=== PATIENT | female | born 1965 | race Caucasian/White ===

== ENCOUNTER 2016-03-29 13:27 | Day surgery (SDC) | payer MEDICAID ==
[~2016-03-29] VITALS: Ht 170.2 cm; Wt 68.0 kg
[~2016-03-29 13:27] MED LIST: FLEXERIL10 MG PO; GABAPENTIN300 MG PO; HYDROCODONE BIT1 T39 PO; MULTI VITAMINS1 TA1 PO; OMEPRAZOLE D/R20 MG PO; OXYCODONE HCL10 M1 PO; OXYCONTIN 10MG10 MG PO; SENOKOT S NG
[2016-03-29 14:01] VITALS: BP 160/97
[2016-03-29 14:21] VITALS: BP 160/97
[2016-03-29 14:24] VITALS: BP 145/102
[2016-03-29 14:38] VITALS: BP 156/99
--- NOTE | 2016-03-29 14:40 | Procedure Note ---
Procedure detail Date of procedure: 03/29/16 Anesthesiologist: Tc fernando NON MOR[employer] INTERCEPT TECHNICIAN Complications: None Pre-procedure diagnosis: Degenerative disc disease cervical spine with cervical radiculopathy symptoms. Post-procedure diagnosis: Same. Indications for procedure: This patient's very pleasant 50-year-old white female that we treating her pain clinic for chronic cervical neck pain secondary to degenerative disc disease cervical spine multiple levels with cervical radiculopathy symptoms. Also, chronic low back pain secondary to degenerative disc disease lumbar spine multilevels as well as post laminectomy syndrome lumbar spine. Patient's main complaint of cervical neck pain that she describes as constant, dull, aching. She rates her pain 8/10. Patient has had 2 cervical epidural steroid injections in the past with 1-2 months of significant improvement terms of her cervical neck pain and cervical radiculopathy symptoms in either arm. Patient requesting a third cervical epidural steroid injection today. I think this is a reasonable injected therapy given the fact the patient had such relief with this injection in the past. Patient does complain of lumbar back pain however, patient states her cervical neck pain is greater. We are medically manage the patient with hydrocodone 7.5 mg 1 by mouth 3 times a day. Patient reports the pain medicine decreases her pain by 50 percent. Patient presents today for cervical epidural steroid injection. Procedure detail: Procedure:Cervical epidural steroid injection Informed consent was obtained and the risks and benefits of the procedure were explained to the patient. The patient was taken to the procedure room and noninvasive monitors placed, including noninvasive blood pressure cuff and pulse oximeter. The neck was prepped using Betadine as a cleansing solution. The C6-C7 interspace was palpated. The skin and subcutaneous tissues were anesthetized using lidocaine 1.5% and a 25-gauge needle. After this an 18-gauge Touhy epidural needle was placed into the C6-C7 interspace and advanced using loss of resistance to air until the epidural space was encountered. After confirmation of needle placement in the epidural space, a solution containing lidocaine 1.5%, 4 mL and Depo-Medrol 80 mg was incrementally injected into the cervical epidural space.~ The patient tolerated the procedure well with no complications. The patient was observed in the Pain Clinic and then discharged home neurologically intact. Plan and disposition: Patient was evaluated 10 minutes post procedure. Patient appears to be doing very well. We'll follow-up with her in the pain clinic for further evaluation. at [id number]
== END 2016-03-29 14:38 | disposition home or self-care (01) ==
LOC: PM 13:27
PROC: 3E0R33Z Introduction of Anti-inflammatory into Spinal Canal, Percutaneous Approach (ICD-10-PCS; principal; 2016-03-29)
PROC: 3E0R3BZ Introduction of Anesthetic Agent into Spinal Canal, Percutaneous Approach (ICD-10-PCS; 2016-03-29)
DX: M50.10 Cervical disc disorder with radiculopathy, unspecified cervical region (principal); M96.1 Postlaminectomy syndrome, not elsewhere classified
CPT/HCPCS: J1040; Q9966

== ENCOUNTER → 2016-06-16 | Outpatient (CLI) | payer MEDICAID ==
[2016-06-23 18:36] LABS: Codeine Negative (Cutoff=100); Hydrocodone Positive (.); Hydromorphone Positive (.); Morphine Negative (Cutoff=100); Opiates Positive (.)
== END ==
LOC: LAB 12:00
PROVIDERS: Anesthesiology
DX: Z79.899 Other long term (current) drug therapy (principal)

== ENCOUNTER → 2016-11-08 | Day surgery (SDC) | payer MEDICAID ==
[~2016-11-08] VITALS: Ht 170.2 cm; Wt 68.0 kg
[2016-11-08 15:36] VITALS: BP 133/85
[2016-11-08 16:02] VITALS: BP 133/85
[2016-11-08 16:08] VITALS: BP 129/90
--- NOTE | 2016-11-08 16:17 | Procedure Note ---
Procedure detail Date of procedure: 11/08/16 Anesthesiologist: Tc Benjamin Complications: None Pre-procedure diagnosis: Degenerative disc disease cervical spine multiple level cervical radiculopathy symptoms. Post-procedure diagnosis: Same Indications for procedure: Very pleasant 51-year-old white female returns our procedural clinic today for cervical epidural steroid injection. Patient has cervical epidural steroid injection 7 months ago with significant improvement terms her cervical neck pain as well as bilateral arm radiculopathy symptoms very she presents today for repeat cervical epidural steroid injection. Procedure detail: Procedure:Cervical epidural steroid injection Informed consent was obtained and the risks and benefits of the procedure were explained to the patient. The patient was taken to the procedure room and noninvasive monitors placed, including noninvasive blood pressure cuff and pulse oximeter. The neck was prepped using Betadine as a cleansing solution. The C6-C7 interspace was palpated. The skin and subcutaneous tissues were anesthetized using lidocaine 1.5% and a 25-gauge needle. After this an 18-gauge Touhy epidural needle was placed into the C6-C7 interspace and advanced using loss of resistance to air until the epidural space was encountered. After confirmation of needle placement in the epidural space using contrast dye and fluoroscopy, a solution containing lidocaine 1.5%, 4 mL and Depo-Medrol 80 mg was incrementally injected into the cervical epidural space.~ The patient tolerated the procedure well with no complications. The patient was observed in the Pain Clinic and then discharged home neurologically intact. Plan and disposition: Patient was reevaluated 10 minutes post procedure. She is doing very well. She' ll return to see us in pain clinic further evaluation. at 1611
[2016-11-08 16:21] VITALS: BP 150/75
== END ==
LOC: PM 15:15
PROC: 3E0R3BZ Introduction of Anesthetic Agent into Spinal Canal, Percutaneous Approach (ICD-10-PCS; principal; 2016-11-08)
PROC: 3E0R33Z Introduction of Anti-inflammatory into Spinal Canal, Percutaneous Approach (ICD-10-PCS; 2016-11-08)
DX: M50.10 Cervical disc disorder with radiculopathy, unspecified cervical region (principal)
CPT/HCPCS: J1040; Q9966

== ENCOUNTER → 2016-12-27 | Day surgery (SDC) | payer MEDICAID ==
[~2016-12-27] VITALS: Ht 170.2 cm; Wt 68.0 kg
[2016-12-27 13:28] VITALS: BP 152/96
[2016-12-27 13:44] VITALS: BP 152/96
[2016-12-27 13:46] VITALS: BP 148/98
--- NOTE | 2016-12-27 13:54 | Procedure Note ---
Procedure detail Date of procedure: 12/27/16 Anesthesiologist: Tc Benjamin Complications: None Pre-procedure diagnosis: Degenerative disc disease cervical spine multiple levels. Cervical radiculopathy symptoms. Post-procedure diagnosis: Same Indications for procedure: Very pleasant 51-year-old white female we have been treating quite some time for chronic cervical neck pain with cervical radicular pain secondary to degenerative disease cervical spine multiple levels. She presents today for therapeutic cervical epidural steroid injection C6-7. Procedure detail: Procedure:Cervical epidural steroid injection Informed consent was obtained and the risks and benefits of the procedure were explained to the patient. The patient was taken to the procedure room and noninvasive monitors placed, including noninvasive blood pressure cuff and pulse oximeter. The neck was prepped using Betadine as a cleansing solution. The C6-C7 interspace was palpated. The skin and subcutaneous tissues were anesthetized using lidocaine 1.5% and a 25-gauge needle. After this an 18-gauge Touhy epidural needle was placed into the C6-C7 interspace and advanced using loss of resistance to air and fluoroscopy guidance until the epidural space was encountered. After confirmation of needle placement in the epidural space, a solution containing lidocaine 1.5%, 4 mL and Depo-Medrol 80 mg was incrementally injected into the cervical epidural space.~ The patient tolerated the procedure well with no complications. The patient was observed in the Pain Clinic and then discharged home neurologically intact. Plan and disposition: Patient was evaluated 10 minutes post procedure. She's doing very well. To return system pain clinic further evaluation. at 1354
[2016-12-27 14:02] LABS: HEMOGLOBIN 14.7 g/dL (12.2-16.2); LYMPH # 1.9 K/mm3 (0.7-4.5); LYMPH % 27.1 % (10-50.0)
[2016-12-27 14:12] VITALS: BP 156/92
[2016-12-28 20:36] LABS: HCV RNA (International Units) 11900000 IU/mL (.)
== END ==
LOC: PM 12:49
PROVIDERS: Nurse Practitioner Acute Care
PROC: 3E0R33Z Introduction of Anti-inflammatory into Spinal Canal, Percutaneous Approach (ICD-10-PCS; principal; 2016-12-27)
PROC: 3E0R3BZ Introduction of Anesthetic Agent into Spinal Canal, Percutaneous Approach (ICD-10-PCS; 2016-12-27)
PROC: B01B1ZZ Fluoroscopy of Spinal Cord using Low Osmolar Contrast (ICD-10-PCS; 2016-12-27)
DX: M50.10 Cervical disc disorder with radiculopathy, unspecified cervical region (principal)
CPT/HCPCS: J1040; Q9966